=== PATIENT | female | born 1960 | race Caucasian/White ===

== ENCOUNTER 2021-09-17 10:11 | Emergency (ER) | payer BC ==
[~2021-09-17] VITALS: Ht 162.6 cm; Wt 60.8 kg
[2021-09-17 10:53] LABS: HEMOGLOBIN 14.9 gm/dl (12.3-15.3); RED BLOOD COUNT 4.61 M/UL (4.00-5.10); WHITE BLOOD COUNT 8.2 K/UL (4.5-11.0)
[2021-09-17 11:53] LABS: BUN/CREATININE RATIO 19 (0-10)
== END 2021-09-17 14:28 | disposition home or self-care (01) ==
LOC: ER1 10:11
PROVIDERS: Emergency Medicine
DX: U07.1 COVID-19 (principal); Z23 Encounter for immunization; E11.9 Type 2 diabetes mellitus without complications; E78.5 Hyperlipidemia, unspecified; I10 Essential (primary) hypertension
CPT/HCPCS: 71045; 80053; 82550; 82553; 83874; 84484; 85025; 85379; 99283; M0243

== ENCOUNTER → 2021-12-02 | Outpatient (CLI) | payer BC | LOC: MAMO 11-23 08:30 | DX: Z12.31 Encounter for screening mammogram for malignant neoplasm of breast (principal) | CPT/HCPCS: 77063; 77067 ==